=== PATIENT | male | born 1970 | race Caucasian/White ===

== ENCOUNTER 2018-12-12 13:27 | Emergency (ER) | payer OTHER ==
[~2018-12-12] VITALS: Ht 167.6 cm; Wt 89.3 kg
[~2018-12-12 13:27] MED LIST: ACET500C5 PO; AZIT250T PO; BENZ200C68 PO; D-ME473S2 PO; IBUP-1542 PO; ONDA8TAB14 PO; PROM5SYR2 PO
[2018-12-12 14:04] VITALS: BP 133/71; PULSE 74; RESP 18; Ht 167.6 cm; Wt 89.3 kg
== END 2018-12-12 14:45 | disposition home or self-care (01) ==
LOC: E/R 13:27
DX: J06.9 Acute upper respiratory infection, unspecified (principal); J02.9 Acute pharyngitis, unspecified
CPT/HCPCS: 99283

== ENCOUNTER 2018-12-13 21:46 | Emergency (ER) | payer OTHER ==
[~2018-12-13] VITALS: Ht 172.7 cm; Wt 89.2 kg
[~2018-12-13 21:46] MED LIST changes: +ALBU18HF INHALATION; +BENZ-6 PO; +PRED20TA PO
[2018-12-13 21:58] VITALS: Ht 172.7 cm; Wt 89.2 kg
[2018-12-14] MEDS ORDERED: ACETAMINOPHEN 325 MG TAB PO ONE
[2018-12-14] MEDS ORDERED: IBUPROFEN 600 MG TAB PO ONE
[2018-12-14 01:19] VITALS: BP 112/67; PULSE 80; RESP 18
== END 2018-12-14 01:19 | disposition home or self-care (01) ==
LOC: FTE 21:46
DX: R05 Cough (principal); Z87.891 Personal history of nicotine dependence
CPT/HCPCS: 71046

== ENCOUNTER 2018-12-19 12:17 | Emergency (ER) | payer OTHER ==
[~2018-12-19] VITALS: Wt 89.0 kg
[2018-12-19] MEDS ORDERED: KETOROLAC 60 MG INJ IM STA (14:25)
[2018-12-19 15:37] VITALS: BP 119/60; PULSE 91; RESP 18
== END 2018-12-19 15:56 | disposition home or self-care (01) ==
LOC: FTE 12:17
DX: J18.9 Pneumonia, unspecified organism (principal); Z87.891 Personal history of nicotine dependence
CPT/HCPCS: 71045; 96372; 99284; J1885

== ENCOUNTER 2018-12-23 09:53 | Emergency (ER) | payer OTHER ==
[~2018-12-23] VITALS: Ht 175.3 cm; Wt 85.8 kg
[2018-12-23 09:54] VITALS: BP 133/82; Ht 175.3 cm; Wt 85.8 kg
[2018-12-23] MEDS ORDERED: ALBUTEROL 0.083% (NEB) 2.5 MG/3 ML AMP NEB STA (10:27)
[2018-12-23] MEDS ORDERED: DEXAMETHASONE 10 MG/ML 1 ML INJ IM STA (10:27)
[2018-12-23 12:38] VITALS: PULSE 80; RESP 22
== END 2018-12-23 12:44 | disposition home or self-care (01) ==
LOC: FTE 09:53
DX: R05 Cough (principal); Z87.891 Personal history of nicotine dependence
CPT/HCPCS: 80048; 85025; 94664; 96372; 99284; J1100